=== PATIENT | female | born 1970 | race Hispanic/Latino ===

== ENCOUNTER 2020-04-03 22:26 | Emergency (ER) | payer BC ==
[~2020-04-03] VITALS: Ht 167.6 cm; Wt 90.7 kg
[~2020-04-03 22:26] MED LIST: MEDROL4 MG/DOSE-; ULTRAM50 MG PO
[2020-04-03] MEDS ORDERED: IBUPROFEN 600 MG TAB PO STA (22:34)
[2020-04-03] MEDS ORDERED: IBUPROFEN 600 MG TAB ONE (22:39)
[2020-04-03 23:26] VITALS: BP 115/71
== END 2020-04-03 23:54 | disposition home or self-care (01) ==
LOC: ER 22:30
DX: U07.1 COVID-19 (principal); R50.9 Fever, unspecified; R05 Cough
CPT/HCPCS: 99283

== ENCOUNTER 2024-05-29 23:48 | Emergency (ER) | payer BC ==
[~2024-05-29] VITALS: Ht 167.6 cm; Wt 92.5 kg
[~2024-05-29 23:48] MED LIST changes: +CIPRO500 MG PO; +ONDANSETRON ODT4 MG PO; +ULTRAM 50MG50 MG PO
[2024-05-30] MEDS ORDERED: KETOROLAC TROMETHAMINE 30 MG/ML VIAL ONE (00:54)
[2024-05-30] MEDS: SODIUM CHLORIDE 0.9% 1000ML 1,000 ML IV ONE (00:59)
[2024-05-30] MEDS: KETOROLAC TROMETHAMINE 30 MG/ML VIAL IV STA (00:59)
[2024-05-30 01:00] LABS: BASOPHILS % 0.2 % (0.0-1.0); EOSINOPHILS % 0.2 % (0.0-6.0); HEMATOCRIT 34.5 % (34.2-44.1); LYMPHOCYTES # (AUTO) 1.1 (1.0-3.2); LYMPHOCYTES % 8.8 % (18.0-39.1); MEAN CORPUSCULAR HEMOGLOBIN 29.3 pg (28-32); MEAN CORPUSCULAR HGB CONC 31.9 g/dL (31-35); MEAN CORPUSCULAR VOLUME 91.8 fL (81-99); MONOCYTES % 8.5 % (4.4-11.3); NEUTROPHILS # (AUTO) 9.7 (2.1-6.9); PLATELET COUNT 143 x10e3/uL (140-360); RED BLOOD COUNT 3.76 x10e6/uL (3.6-5.1); WHITE BLOOD COUNT 11.87 x10e3/uL (4.8-10.8)
[2024-05-30 01:05] LABS: INR 1.15; PROTHROMBIN TIME 15.4 seconds (11.9-14.5)
[2024-05-30 01:06] LABS: PARTIAL THROMBOPLASTIN TIME 29.4 seconds (23.8-35.5)
[2024-05-30 01:13] LABS: BACTERIA,URINE MODERATE /HPF; BILIRUBIN,URINE NEGATIVE (NEGATIVE); CLARITY,URINE CLOUDY (CLEAR); COLOR,URINE YELLOW (YELLOW); EPITHELIAL CELLS,URINE MANY /LPF; GLUCOSE, URINE NEGATIVE (NEGATIVE); KETONES,URINE TRACE (NEGATIVE); LEUKOCYTE ESTERASE ,URINE TRACE (NEGATIVE); NITRITE,URINE NEGATIVE (NEGATIVE); PH,URINE 6 (5 - 7); PROTEIN,URINE DIPSTICK 1+ (NEGATIVE); TRANSITIONAL EPI CELLS,URINE FEW; URINE UROBILINOGEN 0.2 mg/dL (0.2 - 1); WBC,URINE (MAN) 21-50 /HPF (0-5)
[2024-05-30 01:14] LABS: ALBUMIN 3.7 g/dL (3.5-5.0); ANION GAP 14.6 mmol/L (8-16); BILIRUBIN,TOTAL 0.7 mg/dL (0.2-1.2); CALCIUM 9.6 mg/dL (8.4-10.2); POTASSIUM 3.6 mmol/L (3.5-5.1); TOTAL PROTEIN 7.4 g/dL (6.5-8.1)
[2024-05-30 01:24] LABS: CORONAVIRUS COVID-19 AG NEGATIVE (NEGATIVE); INFLUENZA A AG NEGATIVE (NEGATIVE); INFLUENZA B AG NEGATIVE (NEGATIVE)
[2024-05-30 02:46] VITALS: PULSE 92; RESP 18; TEMP 99
[2024-05-30] MEDS ORDERED: CEFPODOXIME PR200 MG PO (03:07)
[2024-05-30] MEDS ORDERED: ONDANSETRON ODT4 MG PO (03:07)
[2024-05-30 03:28] VITALS: BP 106/62; PULSE 91; RESP 18; TEMP 99; O2SAT 97
[2024-05-30] MEDS ORDERED: IOPAMIDOL 370 MG/ML 100 ML INFUS..BTL INJ ONE (06:40)
== END 2024-05-30 00:30 | disposition home or self-care (01) ==
LOC: ER 23:55
DX: R10.11 Right upper quadrant pain (principal); N12 Tubulo-interstitial nephritis, not specified as acute or chronic; E11.65 Type 2 diabetes mellitus with hyperglycemia; I10 Essential (primary) hypertension
CPT/HCPCS: 36415; 71045; 74177; 76705; 80053; 81001; 83605; 83690; 85025; 85610; 85730; 87040; 87086; 87428; 93005; 99284; J1885; J2543; J7030; Q9967